=== PATIENT | female | born 1985 | race Caucasian/White ===

== ENCOUNTER 2016-06-29 16:04 | Emergency (ER) | payer SELFPAY ==
[~2016-06-29] VITALS: Ht 157.5 cm; Wt 70.9 kg
[~2016-06-29 16:04] MED LIST: CALC200T3 PO; FURO-93 PO; LACT10SO5 PO; LEVO500T33 PO; LORA-446 PO; MORP10SO PO; PANT40TA3 PO; POTA20TA14 PO; PRED20TA PO; SPIR50TA PO; URSO300C27 PO
[2016-06-29] MEDS ORDERED: ALBUTEROL/IPRATROPIUM 2.5MG/0.5MG, 3 ML NPPB ONE (17:00)
[2016-06-29 17:01] LABS: BLOOD UREA NITROGEN 5 mg/dL (7-18)
[2016-06-29] MEDS ORDERED: ALBUTEROL SULFATE 2.5 MG/3 ML ONE (17:09)
[2016-06-29] MEDS ORDERED: ALBUTEROL SULFATE 2.5 MG/3 ML NPPB ONE (17:10)
[2016-06-29] MEDS ORDERED: DOCUSATE 50 MG/5 ML ORAL SOL ONE ×2 (17:12→18:22)
[2016-06-29 17:29] LABS: ASPARTATE AMINO TRANSFERASE 145 U/L (15-37)
[2016-06-29] MEDS ORDERED: SODIUM CHLORIDE FLUSH 10ML SYR IVF ONE (17:30)
[2016-06-29] MEDS ORDERED: SODIUM CHLORIDE 0.9% 1,000ML IVBOLUS ONE (17:30)
[2016-06-29] MEDS ORDERED: ONDANSETRON 2MG/ML, 2ML IVPush ONE (17:30)
[2016-06-29] MEDS ORDERED: DOCUSATE 50 MG/5 ML ORAL SOL OT PRN (18:00)
[2016-06-29] MEDS ORDERED: ONDANSETRON 2MG/ML, 2ML ONE (18:22)
[2016-06-29 20:42] VITALS: BP 142/90
== END 2016-06-29 20:43 | disposition home or self-care (01) ==
LOC: ED 19:34
DX: J20.9 Acute bronchitis, unspecified (principal); J02.9 Acute pharyngitis, unspecified; H61.22 Impacted cerumen, left ear; F19.10 Other psychoactive substance abuse, uncomplicated; F10.129 Alcohol abuse with intoxication, unspecified; G31.2 Degeneration of nervous system due to alcohol; K70.10 Alcoholic hepatitis without ascites; K76.0 Fatty (change of) liver, not elsewhere classified; F19.94 Other psychoactive substance use, unspecified with psychoactive substance-induced mood disorder; F41.9 Anxiety disorder, unspecified; F32.9 Major depressive disorder, single episode, unspecified; Y90.8 Blood alcohol level of 240 mg/100 ml or more
CPT/HCPCS: 36415; 69209; 71020; 76700; 80053; 80307; 81001; 83690; 85025; 96361; 96374; 99285; J2405; J7030

== ENCOUNTER 2017-09-13 05:37 | Inpatient (IN) | payer MEDICAID ==
[~2017-09-13] VITALS: Ht 157.5 cm; Wt 68.4 kg
[~2017-09-13 05:37] MED LIST changes: -LEVO500T33 PO; +LEVO500T47 PO
[2017-09-13] MEDS ORDERED: BENZONATATE 100 MG CAPSULE PO ONE (06:30)
[2017-09-13] MEDS ORDERED: BENZONATATE 100 MG CAPSULE ONE (06:32)
[2017-09-13 06:43] LABS: ALANINE AMINOTRANSFERASE 87 U/L (12-78); ALBUMIN 4.4 g/dL (3.4-5.0); ANION GAP 19 mmol/L (5-15); CALCIUM 8.3 mg/dL (8.5-10.1); CHLORIDE 100 mmol/L (98-107); CREATININE 0.73 mg/dL (0.55-1.02)
[2017-09-13 06:44] LABS: MICROSCOPIC AUTO
[2017-09-13 06:47] LABS: CULTURE INDICATED? YES
[2017-09-13 06:48] LABS: ALKALINE PHOSPHATASE 128 U/L (45-117); BILIRUBIN,TOTAL 1.7 mg/dL (0.2-1.0); TOTAL PROTEIN 9.3 g/dL (6.4-8.2)
[2017-09-13 07:55] LABS: MEAN CORPUSCULAR HEMOGLOBIN 27.7 pg (27.0-34.8); MEAN CORPUSCULAR HGB CONC 32.8 g/dL (32.4-35.8); MEAN CORPUSCULAR VOLUME 84.3 fL (80-100); MEAN PLATELET VOLUME 7.6 fL (7.4-10.4); RED CELL DISTRIBUTION WIDTH 17.7 % (9.6-15.2)
[2017-09-13 08:05] LABS: PLATELET COUNT 43 x10^3/uL (130-400)
[2017-09-13 08:30] LABS: BASOPHILS # (AUTO) 0.03 x10^3/uL (0-0.1); BASOPHILS % (AUTO) 2 % (0-1); EOSINOPHILS # (AUTO) 0.01 x10^3/uL (0-0.4); EOSINOPHILS % (AUTO) 0 % (1-7); LYMPHOCYTES # (AUTO) 0.86 x10^3/uL (1-3.4); LYMPHOCYTES % (AUTO) 51 % (22-44); MD SCAN; MONOCYTES # (AUTO) 0.21 x10^3/uL (0.2-0.8); MONOCYTES % (AUTO) 12 % (2-9); NEUTROPHILS # (AUTO) 0.58 x10^3/uL (1.8-6.8); NEUTROPHILS % (AUTO) 34 % (42-75)
[2017-09-13] MEDS ORDERED: FAMOTIDINE 20 MG TABLET ONE (09:18)
[2017-09-13] MEDS ORDERED: FAMOTIDINE 20 MG TABLET PO ONE (09:30)
[2017-09-13 10:01] VITALS: BP 116/82
[2017-09-13 10:43] LABS: ABSOLUTE RETICS # 0.092 x10^6/uL (0.5-2.5); RED BLOOD COUNT 3.84 x10^6/uL (3.82-5.3); RETICULOCYTE COUNT % 2.41 % (0.5-1.5)
[2017-09-13] MEDS ORDERED: POTASSIUM CHLORIDE 20 MEQ TAB.ER.PRT PO ONE (11:00)
[2017-09-13 11:20] LABS: AMPHETAMINE SCREEN, URINE Negative (Negative); BARBITURATE SCREEN, URINE Negative (Negative); BENZODIAZEPINE SCREEN, URINE Negative (Negative); CANNABINOID SCREEN, URINE Negative (Negative)
[2017-09-13 11:21] LABS: COCAINE SCREEN, URINE Negative (Negative); METHADONE SCREEN, URINE Negative (Negative); OPIATE SCREEN, URINE Negative (Negative)
[2017-09-13 11:21] LABS: FOLATE LEVEL 5.6 ng/mL (3.1-17.5); THYROID STIMULATING HORMONE 2.12 mIU/L (0.358-3.740)
[2017-09-13] MEDS ORDERED: LORazepam 2 MG/ML, 1ML IV PRN ×3 (12:30)
[2017-09-13] MEDS: THIAMINE 100MG TABLET PO SCH (12:30)
[2017-09-13] MEDS ORDERED: DOCUSATE 100 MG CAPSULE PO PRN (12:30)
[2017-09-13] MEDS: FOLIC ACID 1 MG TABLET PO SCH (12:30)
[2017-09-13] MEDS ORDERED: LORazepam 1MG TABLET PO PRN ×2 (12:30)
[2017-09-13] MEDS ORDERED: BENZONATATE 100 MG CAPSULE PO PRN (13:00)
[2017-09-13] MEDS ORDERED: CETIRIZINE 10 MG TABLET PO PRN (13:00)
[2017-09-13 13:18] LABS: INTERNATIONAL NORMALIZED RATIO 1.06 (0.93-1.1)
[2017-09-13] MEDS: D5%-0.45% NACL 1,000 ML IV SCH (13:57)
[2017-09-13] MEDS ORDERED: ALBUTEROL SULFATE 2.5 MG/3 ML NPPB ONE (14:00)
[2017-09-13 14:43] VITALS: BP 111/76
[2017-09-13] MEDS: ONDANSETRON 2MG/ML, 2ML IV PRN ×2 (15:08→20:39)
[2017-09-13] MEDS ORDERED: ALBUTEROL SULFATE 2.5 MG/3 ML NPPB PRN (16:00)
[2017-09-13] MEDS ORDERED: OMNIPAQUE 350 MG/ML, 150 ML BOTTLE ONE (19:01)
[2017-09-13 20:20] VITALS: BP 120/81
[2017-09-13 21:38] LABS: HCT (SEDRATE) 30.4 % (34.6-47.8)
[2017-09-13] MEDS: LORazepam 2 MG/ML, 1ML IV PRN (22:50)
[2017-09-14 02:00] VITALS: BP 116/80
[2017-09-14] MEDS: D5%-0.45% NACL 1,000 ML IV SCH (02:45)
[2017-09-14] MEDS ORDERED: CALCIUM CARBONATE 500 MG TAB.CHEW PO PRN (03:30)
[2017-09-14 05:46] LABS: ALBUMIN 3.6 g/dL (3.4-5.0); ANION GAP 17 mmol/L (5-15); CALCIUM 8.4 mg/dL (8.5-10.1); CHLORIDE 100 mmol/L (98-107)
[2017-09-14 05:48] LABS: MEAN CORPUSCULAR HGB CONC 32.9 g/dL (32.4-35.8); MEAN CORPUSCULAR VOLUME 85.2 fL (80-100); MEAN PLATELET VOLUME 7.2 fL (7.4-10.4); RED BLOOD COUNT 3.31 x10^6/uL (3.82-5.3); RED CELL DISTRIBUTION WIDTH 17.5 % (9.6-15.2)
[2017-09-14 05:50] LABS: ALANINE AMINOTRANSFERASE 69 U/L (12-78); ALKALINE PHOSPHATASE 105 U/L (45-117); BILIRUBIN,TOTAL 2.4 mg/dL (0.2-1.0); CREATININE 0.98 mg/dL (0.55-1.02); TOTAL PROTEIN 7.8 g/dL (6.4-8.2)
[2017-09-14 06:09] LABS: PLATELET COUNT 35 x10^3/uL (130-400)
[2017-09-14 07:08] LABS: MD YES
[2017-09-14 07:10] LABS: <PLATELET ESTIMATE> DECREASED; <PLT MORPHOLOGY> NORMAL PLT MORPH; <RBC MORPHOLOGY> NORMAL; LYMPH#(MANUAL) 0.96 x10^3/uL (1-3.4); LYMPHS% (MANUAL) 48 % (22-44); MONOS#(MANUAL) 0.04 x10^3/uL (0.3-2.7); MONOS% (MANUAL) 2 % (2-9); SEGS% (MANUAL) 50 % (42-75)
[2017-09-14 08:24] VITALS: BP 119/82
[2017-09-14] MEDS: FOLIC ACID 1 MG TABLET PO SCH (08:29)
[2017-09-14] MEDS: THIAMINE 100MG TABLET PO SCH (08:29)
[2017-09-14] MEDS: POLYETHYLENE GLYCOL 17 GM PACKET PO PRN (09:31)
[2017-09-14] MEDS: SODIUM CHLORIDE 0.45% 1,000 ML IV SCH ×2 (10:00→20:58)
[2017-09-14] MEDS: POTASSIUM CHLORIDE 20 MEQ, MAGNESIUM SULFATE 1 GM, FOLIC ACID 1 MG, THIAMINE 200 MG, MV... IV SCH (13:05)
[2017-09-14] MEDS: PANTOPRAZOLE 40 MG IV IVPush SCH ×2 (13:05→22:06)
[2017-09-14 13:06] VITALS: BP 113/79
[2017-09-14 20:00] VITALS: BP 102/72
[2017-09-15] MEDS: LORazepam 2 MG/ML, 1ML IV PRN ×2 (00:37→22:13)
[2017-09-15 01:50] VITALS: BP 113/84
[2017-09-15] MEDS: SODIUM CHLORIDE 0.45% 1,000 ML IV SCH ×2 (05:07→12:00)
[2017-09-15 07:39] LABS: ALANINE AMINOTRANSFERASE 103 U/L (12-78); ALBUMIN 3.8 g/dL (3.4-5.0); ANION GAP 13 mmol/L (5-15); CHLORIDE 106 mmol/L (98-107); CREATININE 0.57 mg/dL (0.55-1.02)
[2017-09-15 07:41] LABS: ALKALINE PHOSPHATASE 124 U/L (45-117); BILIRUBIN,TOTAL 2.4 mg/dL (0.2-1.0); TOTAL PROTEIN 7.7 g/dL (6.4-8.2)
[2017-09-15 07:55] VITALS: BP 122/83
[2017-09-15 07:59] LABS: MEAN CORPUSCULAR HEMOGLOBIN 27.4 pg (27.0-34.8); MEAN CORPUSCULAR HGB CONC 32.4 g/dL (32.4-35.8); MEAN CORPUSCULAR VOLUME 84.5 fL (80-100); MEAN PLATELET VOLUME 6.5 fL (7.4-10.4); PLATELET COUNT 63 x10^3/uL (130-400); RED BLOOD COUNT 3.55 x10^6/uL (3.82-5.3); RED CELL DISTRIBUTION WIDTH 16.9 % (9.6-15.2)
[2017-09-15 08:00] LABS: MD YES
[2017-09-15 08:03] LABS: BAND#(MANUAL) 0.02 x10^3/uL; BANDS%(MANUAL) 1 % (0-7); EOS#(MANUAL) 0.02 x10^3/uL (0.0-0.4); EOS% (MANUAL) 1 % (1-7); LYMPH#(MANUAL) 1.08 x10^3/uL (1-3.4); LYMPHS% (MANUAL) 60 % (22-44); MONOS#(MANUAL) 0.13 x10^3/uL (0.3-2.7); MONOS% (MANUAL) 7 % (2-9); SEG#(MANUAL) 0.56 x10^3/uL (1.8-6.8); SEGS% (MANUAL) 31 % (42-75)
[2017-09-15 08:04] LABS: <PLATELET ESTIMATE> DECREASED; LARGE PLATELETS 1+; POLYCHROMASIA 1+
[2017-09-15] MEDS: THIAMINE 100MG TABLET PO SCH (08:41)
[2017-09-15] MEDS: FOLIC ACID 1 MG TABLET PO SCH (08:41)
[2017-09-15] MEDS: PANTOPRAZOLE 40 MG IV IVPush SCH ×2 (08:42→21:56)
[2017-09-15] MEDS: LORazepam 0.5MG TABLET PO PRN (09:14)
[2017-09-15] MEDS ORDERED: POTASSIUM CHLORIDE 20 MEQ TAB.ER.PRT PO ONE ×2 (10:00→14:00)
[2017-09-15 14:20] VITALS: BP 117/85
[2017-09-15] MEDS: POTASSIUM CHLORIDE 20 MEQ, MAGNESIUM SULFATE 1 GM, FOLIC ACID 1 MG, THIAMINE 200 MG, MV... IV SCH (14:53)
[2017-09-15] MEDS: LORazepam 1MG TABLET PO PRN (15:12)
[2017-09-15] MEDS ORDERED: LACTULOSE 20 GM/30 ML UDC PO PRN (15:30)
[2017-09-15] MEDS ORDERED: OMNIPAQUE 350 MG/ML, 100ML BOTTLE ONE (17:31)
[2017-09-15 19:04] LABS: MICROSCOPIC NOT IND
[2017-09-15 19:31] LABS: CULTURE INDICATED? NO
[2017-09-15 19:56] VITALS: BP 111/77
[2017-09-15] MEDS: POLYETHYLENE GLYCOL 17 GM PACKET PO PRN (21:56)
[2017-09-16 02:00] VITALS: BP 118/81
[2017-09-16 04:31] LABS: ALBUMIN 3.5 g/dL (3.4-5.0); ANION GAP 8 mmol/L (5-15); CALCIUM 8.3 mg/dL (8.5-10.1); CHLORIDE 109 mmol/L (98-107)
[2017-09-16 04:35] LABS: ALANINE AMINOTRANSFERASE 119 U/L (12-78); ALKALINE PHOSPHATASE 110 U/L (45-117); BILIRUBIN,TOTAL 1.6 mg/dL (0.2-1.0); TOTAL PROTEIN 7.1 g/dL (6.4-8.2)
[2017-09-16 05:41] LABS: MD YES; MEAN CORPUSCULAR HEMOGLOBIN 27.6 pg (27.0-34.8); MEAN CORPUSCULAR HGB CONC 32.4 g/dL (32.4-35.8); MEAN CORPUSCULAR VOLUME 85.2 fL (80-100); MEAN PLATELET VOLUME 8.1 fL (7.4-10.4); PLATELET COUNT 67 x10^3/uL (130-400); RED BLOOD COUNT 3.44 x10^6/uL (3.82-5.3); RED CELL DISTRIBUTION WIDTH 17.6 % (9.6-15.2)
[2017-09-16 05:46] LABS: BASOS#(MANUAL) 0.02 x10^3/uL (0-0.1); BASOS% (MANUAL) 1 % (0-1); EOS#(MANUAL) 0.04 x10^3/uL (0.0-0.4); EOS% (MANUAL) 2 % (1-7); LYMPH#(MANUAL) 1.21 x10^3/uL (1-3.4); LYMPHS% (MANUAL) 55 % (22-44); MONOS% (MANUAL) 9 % (2-9); NRBC % (MANUAL) 1 % (0-1); SEG#(MANUAL) 0.73 x10^3/uL (1.8-6.8); SEGS% (MANUAL) 33 % (42-75)
[2017-09-16 05:47] LABS: <PLATELET ESTIMATE> DECREASED; ANISOCYTOSIS 1+; POLYCHROMASIA 1+
[2017-09-16 05:48] LABS: <PLT MORPHOLOGY> NORMAL PLT MORPH
[2017-09-16] MEDS: ONDANSETRON 2MG/ML, 2ML IV PRN (06:34)
[2017-09-16 08:47] VITALS: BP 112/79
[2017-09-16] MEDS: THIAMINE 100MG TABLET PO SCH (08:52)
[2017-09-16] MEDS: FOLIC ACID 1 MG TABLET PO SCH (08:53)
[2017-09-16] MEDS ORDERED: SODIUM CHLORIDE 0.9% 1,000 ML IV SCH (09:00)
[2017-09-16] MEDS ORDERED: LIDOCAINE-MPF 2% ,5ML ONE ×2 (10:03→10:56)
[2017-09-16] MEDS ORDERED: NALOXONE 1 MG/ML, 2ML ONE (10:07)
[2017-09-16] MEDS ORDERED: FLUMAZENIL 0.1 MG/1 ML, 5ML ONE (10:07)
[2017-09-16] MEDS ORDERED: FENTANYL PF 100 MCG/2ML ONE (10:07)
[2017-09-16] MEDS ORDERED: MIDAZOLAM 1 MG/ML, 5ML ONE (10:07)
[2017-09-16] MEDS: LEVETIRACETAM 500 MG TABLET PO SCH ×2 (10:12→20:08)
[2017-09-16] MEDS: PANTOPRAZOLE 40 MG IV IVPush SCH ×2 (10:13→20:08)
[2017-09-16] MEDS: POTASSIUM CHLORIDE 20 MEQ, MAGNESIUM SULFATE 1 GM, FOLIC ACID 1 MG, THIAMINE 200 MG, MV... IV SCH (16:44)
[2017-09-16 20:05] VITALS: BP 104/73
[2017-09-16] MEDS: LORazepam 0.5MG TABLET PO PRN (20:08)
[2017-09-17 01:18] VITALS: BP 101/69
[2017-09-17] MEDS: LORazepam 0.5MG TABLET PO PRN ×2 (03:31→09:14)
[2017-09-17 04:34] LABS: ALBUMIN 3.1 g/dL (3.4-5.0); ANION GAP 7 mmol/L (5-15); CALCIUM 8.3 mg/dL (8.5-10.1); CHLORIDE 110 mmol/L (98-107)
[2017-09-17 04:39] LABS: ALANINE AMINOTRANSFERASE 100 U/L (12-78); ALKALINE PHOSPHATASE 102 U/L (45-117); BILIRUBIN,TOTAL 1.4 mg/dL (0.2-1.0); CREATININE 0.56 mg/dL (0.55-1.02); TOTAL PROTEIN 6.7 g/dL (6.4-8.2)
[2017-09-17 04:51] LABS: BASOPHILS # (AUTO) 0.02 x10^3/uL (0-0.1); BASOPHILS % (AUTO) 1 % (0-1); EOSINOPHILS # (AUTO) 0.04 x10^3/uL (0-0.4); EOSINOPHILS % (AUTO) 2 % (1-7); LYMPHOCYTES # (AUTO) 1.07 x10^3/uL (1-3.4); LYMPHOCYTES % (AUTO) 46 % (22-44); MD SCAN; MEAN CORPUSCULAR HEMOGLOBIN 28.1 pg (27.0-34.8); MEAN CORPUSCULAR HGB CONC 32.2 g/dL (32.4-35.8); MEAN CORPUSCULAR VOLUME 87.4 fL (80-100); MEAN PLATELET VOLUME 7.6 fL (7.4-10.4); MONOCYTES # (AUTO) 0.22 x10^3/uL (0.2-0.8); MONOCYTES % (AUTO) 9 % (2-9); NEUTROPHILS # (AUTO) 0.99 x10^3/uL (1.8-6.8); NEUTROPHILS % (AUTO) 42 % (42-75); PLATELET COUNT 89 x10^3/uL (130-400); RED CELL DISTRIBUTION WIDTH 18.7 % (9.6-15.2)
[2017-09-17 07:00] VITALS: BP 112/81
[2017-09-17] MEDS ORDERED: SODIUM PHOSPHATE 30 MMOL in SODIUM CHLORIDE 0.9% 500 ML IV ONE (07:00)
[2017-09-17] MEDS: FOLIC ACID 1 MG TABLET PO SCH (07:52)
[2017-09-17] MEDS: LEVETIRACETAM 500 MG TABLET PO SCH ×2 (07:52→20:53)
[2017-09-17] MEDS: THIAMINE 100MG TABLET PO SCH (07:52)
[2017-09-17] MEDS: PANTOPRAZOLE 40 MG IV IVPush SCH (07:52)
[2017-09-17] MEDS: POTASSIUM CHLORIDE 20 MEQ, MAGNESIUM SULFATE 1 GM, FOLIC ACID 1 MG, THIAMINE 200 MG, MV... IV SCH (12:19)
[2017-09-17 17:25] VITALS: BP 112/78
[2017-09-17 19:27] VITALS: BP 100/66
[2017-09-18 01:43] VITALS: BP 109/73
[2017-09-18 04:47] LABS: MEAN CORPUSCULAR HEMOGLOBIN 28.4 pg (27.0-34.8); MEAN CORPUSCULAR HGB CONC 32.4 g/dL (32.4-35.8); MEAN CORPUSCULAR VOLUME 87.8 fL (80-100); PLATELET COUNT 111 x10^3/uL (130-400); RED BLOOD COUNT 3.27 x10^6/uL (3.82-5.3)
[2017-09-18 05:06] LABS: ANION GAP 7 mmol/L (5-15); CALCIUM 8.7 mg/dL (8.5-10.1); CHLORIDE 109 mmol/L (98-107); CREATININE 0.51 mg/dL (0.55-1.02)
[2017-09-18 05:07] LABS: ALANINE AMINOTRANSFERASE 88 U/L (12-78); ALBUMIN 3.2 g/dL (3.4-5.0)
[2017-09-18 05:09] LABS: ALKALINE PHOSPHATASE 116 U/L (45-117); BILIRUBIN,TOTAL 0.9 mg/dL (0.2-1.0)
[2017-09-18 05:35] LABS: MD YES
[2017-09-18 05:38] LABS: EOS#(MANUAL) 0.03 x10^3/uL (0.0-0.4); EOS% (MANUAL) 1 % (1-7); LYMPH#(MANUAL) 1.13 x10^3/uL (1-3.4); LYMPHS% (MANUAL) 45 % (22-44); MONOS#(MANUAL) 0.23 x10^3/uL (0.3-2.7); MONOS% (MANUAL) 9 % (2-9); SEG#(MANUAL) 1.13 x10^3/uL (1.8-6.8); SEGS% (MANUAL) 45 % (42-75)
[2017-09-18 05:39] LABS: <PLATELET ESTIMATE> DECREASED; <PLT MORPHOLOGY> NORMAL PLT MORPH; ANISOCYTOSIS 1+; POLYCHROMASIA 1+
[2017-09-18 07:00] VITALS: BP 128/92
[2017-09-18] MEDS ORDERED: PANTOPRAZOLE 20MG TABLET PO SCH (07:30)
[2017-09-18] MEDS: FOLIC ACID 1 MG TABLET PO SCH (09:11)
[2017-09-18] MEDS: LEVETIRACETAM 500 MG TABLET PO SCH (09:11)
[2017-09-18] MEDS: THIAMINE 100MG TABLET PO SCH (09:11)
[2017-09-18] MEDS: LORazepam 1MG TABLET PO PRN (11:00)
[2017-09-18 12:40] VITALS: BP 124/89
[2017-09-18] MEDS ORDERED: LEVE500T53 PO (12:51)
[2017-09-18] MEDS ORDERED: FOLI-17 PO (12:51)
[2017-09-18] MEDS ORDERED: THIA100T6 PO (12:51)
[2017-09-18] MEDS: POTASSIUM CHLORIDE 20 MEQ, MAGNESIUM SULFATE 1 GM, FOLIC ACID 1 MG, THIAMINE 200 MG, MV... IV SCH (13:08)
== END 2017-09-18 14:40 | disposition home or self-care (01) | DRG 809 ==
LOC: ED 09:14 → 3NW 09:15 → ED 09:34
PROVIDERS: ADMIT Hospitalist; ATTEND Hospitalist
PROC: 07DR3ZX Extraction of Iliac Bone Marrow, Percutaneous Approach, Diagnostic (ICD-10-PCS; principal; 2017-09-16)
DX: D61.818 Other pancytopenia (principal); E87.2 Acidosis; F10.239 Alcohol dependence with withdrawal, unspecified; E16.2 Hypoglycemia, unspecified; E83.39 Other disorders of phosphorus metabolism; E87.6 Hypokalemia; F17.210 Nicotine dependence, cigarettes, uncomplicated; F41.9 Anxiety disorder, unspecified; G40.909 Epilepsy, unspecified, not intractable, without status epilepticus; J45.909 Unspecified asthma, uncomplicated; K21.9 Gastro-esophageal reflux disease without esophagitis; K44.9 Diaphragmatic hernia without obstruction or gangrene; K59.00 Constipation, unspecified; K70.30 Alcoholic cirrhosis of liver without ascites; K76.0 Fatty (change of) liver, not elsewhere classified; Y90.8 Blood alcohol level of 240 mg/100 ml or more; Z59.0 Homelessness; Z66 Do not resuscitate; Z79.899 Other long term (current) drug therapy; Z82.49 Family history of ischemic heart disease and other diseases of the circulatory system; Z87.820 Personal history of traumatic brain injury
CPT/HCPCS: 36415; 84155; 87806; 99285; J7042; J7613; 38222; 70491; 71045; 71046; 71260; 76700; 77012; 80053; 80074; 80307; 81001; 81003; 82140; 82607; 82746; 82784; 82962; 83615; 83735; 84100; 84165; 84443; 84703; 85025; 85045; 85060; 85097; 85384; 85610; 85651; 85730; 86038; 86308; 86334; 86430; 86431; 87040; 87086; 88237; 88264; 88280; 88305; 88311; 88313; 88342; 94640; 99156; 99157; J2250; J2405; J3010; J3411; J3475; J3480; J3490; Q9967; C9113; G0461; G0475; J2060; J2310; J7030; J7040

== ENCOUNTER 2017-10-14 07:23 | Emergency (ER) | payer MEDICAID ==
[~2017-10-14] VITALS: Ht 157.5 cm; Wt 65.0 kg
[~2017-10-14 07:23] MED LIST changes: +FOLI-17 PO; +LEVE500T53 PO; +THIA100T67 PO
[2017-10-14] MEDS ORDERED: PLEASE ENTER HEIGHT AND WEIGHT MC SCH (08:00)
[2017-10-14] MEDS ORDERED: THIAMINE 100MG TABLET PO ONE (08:00)
[2017-10-14] MEDS ORDERED: FOLIC ACID 1 MG TABLET PO ONE (08:00)
[2017-10-14] MEDS ORDERED: SODIUM CHLORIDE 0.9% 1,000ML IVBOLUS ONE (08:00)
[2017-10-14 08:17] LABS: ALANINE AMINOTRANSFERASE 40 U/L (12-78); ANION GAP 14 mmol/L (5-15); CALCIUM 8.1 mg/dL (8.5-10.1); CHLORIDE 102 mmol/L (98-107); CREATININE 0.59 mg/dL (0.55-1.02)
[2017-10-14 08:22] LABS: ALKALINE PHOSPHATASE 105 U/L (45-117); BILIRUBIN,TOTAL 0.7 mg/dL (0.2-1.0); TOTAL PROTEIN 8.9 g/dL (6.4-8.2)
[2017-10-14 08:38] LABS: MEAN CORPUSCULAR HEMOGLOBIN 26.4 pg (27.0-34.8); MEAN CORPUSCULAR HGB CONC 32.7 g/dL (32.4-35.8); MEAN CORPUSCULAR VOLUME 80.6 fL (80-100); MEAN PLATELET VOLUME 7.6 fL (7.4-10.4); PLATELET COUNT 53 x10^3/uL (130-400); RED BLOOD COUNT 4.12 x10^6/uL (3.82-5.3); RED CELL DISTRIBUTION WIDTH 17.2 % (9.6-15.2)
[2017-10-14 08:39] LABS: MD YES
[2017-10-14 08:42] LABS: <PLATELET ESTIMATE> DECREASED; ANISOCYTOSIS 1+; BAND#(MANUAL) 0.08 x10^3/uL; BANDS%(MANUAL) 2 % (0-7); BASOS#(MANUAL) 0.04 x10^3/uL (0-0.1); BASOS% (MANUAL) 1 % (0-1); EOS#(MANUAL) 0.11 x10^3/uL (0.0-0.4); EOS% (MANUAL) 3 % (1-7); LARGE PLATELETS 1+; LYMPH#(MANUAL) 2.17 x10^3/uL (1-3.4); LYMPHS% (MANUAL) 57 % (22-44); MONOS#(MANUAL) 0.08 x10^3/uL (0.3-2.7); MONOS% (MANUAL) 2 % (2-9); SEG#(MANUAL) 1.33 x10^3/uL (1.8-6.8); SEGS% (MANUAL) 35 % (42-75)
[2017-10-14 08:43] LABS: POLYCHROMASIA 1+
[2017-10-14 09:26] LABS: MICROSCOPIC INDICATED
[2017-10-14 09:30] LABS: CULTURE INDICATED? YES
[2017-10-14] MEDS ORDERED: THIAMINE 100MG TABLET ONE (09:50)
[2017-10-14 10:56] VITALS: BP 126/78
== END 2017-10-14 10:59 | disposition home or self-care (01) ==
LOC: ED 09:12 → 3NW 09:21 → UNDOADMOB 09:21 → ED 10:59
DX: F10.20 Alcohol dependence, uncomplicated (principal); D69.3 Immune thrombocytopenic purpura; Z72.9 Problem related to lifestyle, unspecified; R82.99 Other abnormal findings in urine; Z79.899 Other long term (current) drug therapy
CPT/HCPCS: 36415; 80053; 80307; 81001; 84703; 85025; 87086; 87147; 99284

== ENCOUNTER 2017-12-24 17:31 | Emergency (ER) | payer MEDICAID ==
[~2017-12-24] VITALS: Ht 157.5 cm; Wt 65.7 kg
[2017-12-24] MEDS ORDERED: LORazepam 2 MG/ML, 1ML IVPush ONE (18:00)
[2017-12-24] MEDS ORDERED: ONDANSETRON ODT 4 MG PO ONE (18:00)
[2017-12-24] MEDS ORDERED: LEVETIRACETAM 1,000 MG in SODIUM CHLORIDE 0.9% 100 ML IV ONE (18:30)
[2017-12-24 18:31] LABS: ALBUMIN 4.3 g/dL (3.4-5.0); ANION GAP 15 mmol/L (5-15); CALCIUM 9.2 mg/dL (8.5-10.1); CHLORIDE 99 mmol/L (98-107)
[2017-12-24 18:34] LABS: ALANINE AMINOTRANSFERASE 28 U/L (12-78); ALKALINE PHOSPHATASE 115 U/L (45-117); TOTAL PROTEIN 8.8 g/dL (6.4-8.2)
[2017-12-24 18:45] LABS: MEAN CORPUSCULAR HEMOGLOBIN 25.9 pg (27.0-34.8); MEAN CORPUSCULAR VOLUME 78.4 fL (80-100); RED BLOOD COUNT 3.76 x10^6/uL (3.82-5.3); RED CELL DISTRIBUTION WIDTH 16.8 % (9.6-15.2)
[2017-12-24 18:47] LABS: PLATELET COUNT 56 x10^3/uL (130-400)
[2017-12-24 18:48] LABS: MEAN PLATELET VOLUME 7.1 fL (7.4-10.4)
[2017-12-24 18:51] LABS: BASOPHILS # (AUTO) 0.02 x10^3/uL (0-0.1); BASOPHILS % (AUTO) 1 % (0-1); EOSINOPHILS % (AUTO) 0 % (1-7); LYMPHOCYTES # (AUTO) 0.62 x10^3/uL (1-3.4); LYMPHOCYTES % (AUTO) 20 % (22-44); MD SCAN; MONOCYTES # (AUTO) 0.19 x10^3/uL (0.2-0.8); MONOCYTES % (AUTO) 6 % (2-9); NEUTROPHILS # (AUTO) 2.26 x10^3/uL (1.8-6.8); NEUTROPHILS % (AUTO) 73 % (42-75)
[2017-12-24] MEDS ORDERED: LORazepam 2 MG/ML, 1ML ONE (19:02)
[2017-12-24] MEDS ORDERED: ONDANSETRON ODT 4 MG ONE (19:02)
[2017-12-24 19:48] LABS: HCG UR SG 1.029 (1.003-1.030)
[2017-12-24 20:07] LABS: CULTURE INDICATED? YES; MICROSCOPIC INDICATED
[2017-12-24 20:14] VITALS: BP 123/84
== END 2017-12-24 20:21 | disposition home or self-care (01) ==
LOC: ED 19:29
DX: F10.239 Alcohol dependence with withdrawal, unspecified (principal); R45.4 Irritability and anger; R19.7 Diarrhea, unspecified; F41.9 Anxiety disorder, unspecified; F32.9 Major depressive disorder, single episode, unspecified; G43.909 Migraine, unspecified, not intractable, without status migrainosus; Y90.0 Blood alcohol level of less than 20 mg/100 ml
CPT/HCPCS: 36415; 80053; 80307; 81001; 81025; 85025; 87086; 96374; 96375; 99284; J1953; J2060; Q0162

== ENCOUNTER 2018-01-27 13:09 | Emergency (ER) | payer MEDICAID ==
[~2018-01-27] VITALS: Ht 157.5 cm; Wt 65.0 kg
[2018-01-27] MEDS ORDERED: LEVETIRACETAM 1,000 MG in SODIUM CHLORIDE 0.9% 100 ML IV ONE (14:00)
[2018-01-27] MEDS ORDERED: SODIUM CHLORIDE FLUSH 10ML SYR IVF ONE (14:00)
[2018-01-27 14:03] LABS: ALANINE AMINOTRANSFERASE 30 U/L (12-78); ALBUMIN 3.9 g/dL (3.4-5.0); ANION GAP 16 mmol/L (5-15); CALCIUM 8.1 mg/dL (8.5-10.1); CHLORIDE 96 mmol/L (98-107); CREATININE 0.75 mg/dL (0.55-1.02)
[2018-01-27 14:07] LABS: ALKALINE PHOSPHATASE 96 U/L (45-117); BILIRUBIN,TOTAL 1.3 mg/dL (0.2-1.0); TOTAL PROTEIN 7.5 g/dL (6.4-8.2)
[2018-01-27 14:24] LABS: ANISOCYTOSIS 1+; BASOPHILS # (AUTO) 0.01 x10^3/uL (0-0.1); BASOPHILS % (AUTO) 1 % (0-1); EOSINOPHILS # (AUTO) 0.01 x10^3/uL (0-0.4); EOSINOPHILS % (AUTO) 1 % (1-7); LYMPHOCYTES # (AUTO) 0.68 x10^3/uL (1-3.4); LYMPHOCYTES % (AUTO) 35 % (22-44); MD MORPH REVIEW ONLY; MEAN CORPUSCULAR VOLUME 75.8 fL (80-100); MEAN PLATELET VOLUME 8.2 fL (7.4-10.4); MONOCYTES # (AUTO) 0.26 x10^3/uL (0.2-0.8); MONOCYTES % (AUTO) 14 % (2-9); NEUTROPHILS # (AUTO) 0.98 x10^3/uL (1.8-6.8); NEUTROPHILS % (AUTO) 50 % (42-75); OVALOCYTES 1+; PLATELET COUNT 62 x10^3/uL (130-400); POLYCHROMASIA 1+; RED BLOOD COUNT 3.74 x10^6/uL (3.82-5.3); RED CELL DISTRIBUTION WIDTH 20.1 % (9.6-15.2)
[2018-01-27 14:25] LABS: <PLATELET ESTIMATE> DECREASED; <PLT MORPHOLOGY> NORMAL PLT MORPH
[2018-01-27] MEDS ORDERED: POTASSIUM CHLORIDE 20 MEQ TAB.ER.PRT PO ONE (15:00)
[2018-01-27 15:45] VITALS: BP 107/61
[2018-01-27] MEDS ORDERED: POTASSIUM CHLORIDE 20 MEQ TAB.ER.PRT ONE (15:55)
== END 2018-01-27 16:19 | disposition home or self-care (01) ==
LOC: ED 15:25
DX: G40.919 Epilepsy, unspecified, intractable, without status epilepticus (principal); E87.6 Hypokalemia
CPT/HCPCS: 36415; 70450; 80053; 80307; 84703; 85025; 93005; 96365; 99284; J1953